=== PATIENT | male | born 1980 | race Two or more races ===

== ENCOUNTER 2019-12-28 09:17 | Inpatient (IN) | payer OTHER ==
[2019-12-28] VITALS (9 sets, daily range): BP systolic 108–125; BP diastolic 55–81
[~2019-12-28] VITALS: Ht 177.8 cm; Wt 97.5 kg
[~2019-12-28 09:17] MED LIST: CENTRUM MEN'S1 EACH PO; EMERGEN-C 1,01000 MG PO; Gelfoam Size TOPIC ONE; ceFAZolin sod 1 GM in NS 55 ML IVPB ONE
[2019-12-28] MEDS ORDERED: GINKGO BILOBA120 MG PO (10:16)
[2019-12-28] MEDS ORDERED: PCA Education Pamphlet MISC SCH (10:45)
[2019-12-28] MEDS ORDERED: PCA HYDROmorphone 1mg/ml 30 ML IV PRN ×3 (10:45→11:00)
[2019-12-28] MEDS ORDERED: ceFAZolin sod 1 GM in NS 55 ML IVPB ONE (10:45)
[2019-12-28] MEDS ORDERED: PCA Education Pamphlet MISC ONE (10:45)
[2019-12-28] MEDS ORDERED: Lidocaine 1% MPF 10mg/ml 5ml ONE (10:53)
[2019-12-28] MEDS ORDERED: Rate Change PCA 1 Each MISC PRN (11:00)
[2019-12-28] MEDS ORDERED: Hydromorphone 0.5mg/0.5ml inj IVP PRN ×2 (11:30→18:00)
--- NOTE | 2019-12-28 11:57 | Pre-Procedure Note/Attestation ---
Pre-Procedure Note/Attestation Complete Prior to Procedure Procedure Narrative: L5S1 and Post fusion with decompression Indications for Procedure Pre-Operative Diagnosis: L5S1 spondylolisthesis/ unstable Attestation I attest that I discussed the nature of the procedure; its benefits; risks and complications; and alternatives (and the risks and benefits of such alternatives ), prior to the procedure, with the patient (or the patient's legal construction representative). I attest that, if there was a reasonable possibility of needing a blood transfusion, the patient (or the patient's legal construction representative) was given the [facility] standardized written summary, pursuant to the Max Arianne Blood Safety Act ([place] Health and Safety Code # 1645, as amended). I attest that I re-evaluated the patient just prior to the surgery and that there has been no change in the patient's H&P, except as documented below: Cedric Mann MD Dec 28, 2019 11:57
[2019-12-28] MEDS ORDERED: fentaNYL 100 mcg/2 mL IV ONE (12:22)
[2019-12-28] MEDS ORDERED: Midazolam 2mg/2ml Inj ONE (12:22)
[2019-12-28] MEDS ORDERED: Gelfoam Size TOPIC ONE (12:24)
[2019-12-28] MEDS ORDERED: Lidocaine 1% 10mg/ml/Epi 0.005mg/ml 30ml vial INJ ONE (12:24)
[2019-12-28] MEDS ORDERED: Bupivacaine w/Epi 0.5% 30ml Vial INJ ONE (12:24)
[2019-12-28] MEDS ORDERED: Thrombin 5000 units TOPIC ONE (12:24)
[2019-12-28] MEDS ORDERED: Ropivacaine 5mg/ml Vial 20ml INJ ONE (12:24)
[2019-12-28] MEDS ORDERED: Bacitracin 50000 Units Vial ONE (12:24)
[2019-12-28] MEDS ORDERED: Vancomycin 1gm vial IVPB ONE (12:25)
[2019-12-28] MEDS ORDERED: Rocuronium Bromide 50mg/5ml Inj IV ONE ×2 (12:36→15:45)
[2019-12-28] MEDS ORDERED: Succinylcholine 20mg/ml 10ml vial ONE (12:36)
--- NOTE | 2019-12-28 12:57 | Anethesia Preoperative Eval ---
Anesthesia Pre-op PMH/ROS General Date of Evaluation: Dec 28, 2019 Time of Evaluation: 12:53 Anesthesiologist: Gladys ASA Score: ASA 2 Mallampati Score Class I : Soft palate, uvula, fauces, pillars visible Class II: Soft palate, uvula, fauces visible Class III: Soft palate, base of uvula visible Class IV: Only hard plate visible Mallampati Classification: Class II Surgeon: Mackenzie Diagnosis: Ant and posterior spinal fusion Surgical Procedure: Lumbar radiculopathy Anesthesia History: none Family History: no anesthesia problems Allergies: Coded Allergies: No Known Allergies (Unverified , 12/28/19) Medications: see eMAR Patient NPO?: Yes Past Medical History Cardiovascular: Denies: HTN, CAD, [place], valve dz, arrhythmia, other Pulmonary: Denies: asthma, COPD, REINA, other Gastrointestinal/Genitourinary: Reports: GERD - mild; Denies: CRI, ESRD, other Neurologic/Psychiatric: Reports: other - chronic pain; Denies: dementia, CVA, depression/anxiety, TIA Endocrine: Denies: DM, hypothyroidism, steroids, other HEENT: Denies: cataract (L), cataract (R), glaucoma, NATIVE (L), NATIVE (R), other Hematology/Immune: Denies: anemia, DVT, bleeding disorder, other Musculoskeletal/Integumentary: Denies: OA, RA, DJD, DDD, edema, other Other: other - overweight PMH Narrative: as above PSxH Narrative: none Anesthesia Pre-op Phys. Exam Physician Exam Last Vital Signs Date Time Temp Pulse Resp B/P (MAP) Pulse Ox O2 Delivery O2 Flow Rate FiO2 12/28/19 10:18 Room Air 12/28/19 10:17 98.2 74 18 125/81 (96) 97 Constitutional: NAD Neurologic: CN 2-12 intact Cardiovascular: RRR, no M/R/G Respiratory: CTA Gastrointestinal: S/NT/ND Airway Exam Mallampati Score: Class II MO: full Neck: flexible ROM: full Teeth: intact Dentures: no upper, no lower Anesthesia Pre-op A/P Labs see chart Studies Pre-op Studies: EKG - NSR Risk Assessment & Plan Assessment: ASA 2 Plan: GA with ETT, supine and prone position, neuromonitoring Status Change Before Surgery: No Pre-Antibiotics Drug: Ancef 2gr. Given Within 1 Hr of Incision: Yes Time Given: 13:40 Ifeanyi Graham MD Dec 28, 2019 12:57
[2019-12-28] MEDS ORDERED: Acetaminophen (Non formulary) 100 ML IV ONE (13:00)
[2019-12-28] MEDS ORDERED: Heparin 5000 units/ml inj ONE (13:39)
[2019-12-28] MEDS ORDERED: propofoL 1,000mg/100ml IV ONE (14:00)
[2019-12-28] MEDS ORDERED: Sterile Water Irrig 1000ml IRRIG ONE (14:00)
[2019-12-28] MEDS ORDERED: NS Irrig 1000ml ONE (14:00)
[2019-12-28] MEDS ORDERED: LR 1000ml ONE (14:00)
[2019-12-28] MEDS ORDERED: Morphine Sulfate 10mg/ml Inj ONE (14:48)
[2019-12-28] MEDS ORDERED: Glycopyrrolate 0.2mg/ml 1ml Vial ONE (14:49)
[2019-12-28] MEDS ORDERED: Sodium Chloride 10ml vial INJ ONE (14:49)
[2019-12-28] MEDS ORDERED: Neostigmine 1mg/ml 10ml Inj ONE (14:49)
--- NOTE | 2019-12-28 15:39 | Brief Operative Note ---
Immediate Post Operative Note Operative Note Pre-op Diagnosis: L5S1 spondylolisthesis/ unstable Procedure: ant post fusion l5s1 with decompression Post-op Diagnosis: same as pre-op Findings: consistent w/pre-op dx studies Surgeon: ysdni Senior Php Developer: dolores treviño Additional Surgeons: reyna dwyer Anesthesiologist: melissa jackson Specimen: none Complications: none Condition: stable Fluids: 1400 Estimated Blood Loss: volume - 250 Drains: none Implant(s) used?: Yes - 4 web cage, eminent spine ant plate, spinal elements pedicle screws Cedric Mann MD Dec 28, 2019 15:39
[2019-12-28] MEDS ORDERED: Milk of Magnesia 30ml Ud ORAL PRN (15:45)
--- NOTE | 2019-12-28 16:45 | Operative Note - Dictated ---
DATE OF OPERATION: 12/28/2019 SURGEON: Cedric Mann MD. DIP DYER: Hussain Zabala PA-C. VASCULAR ACCESS SURGEON: Alber Zaragoza MD. ANESTHESIOLOGIST: Ifeanyi Graham MD. ANESTHESIA: General endotracheal anesthesia. PREOPERATIVE DIAGNOSIS: Unstable spondylolisthesis at L5-S1. POSTOPERATIVE DIAGNOSIS: Unstable spondylolisthesis at L5-S1. PROCEDURES: 1. Wide and radical anterior discectomy, lumbar spine with interbody fusion, L5-S1. 2. Placement of interbody fusion device (4 WEB cage). 3. Anterior instrumentation using Eminent spine plate, L5-S1. 4. Use of allograft (Signafuse). 5. Use of fluoroscopy. ESTIMATED BLOOD LOSS: Minimal. COMPLICATIONS: None. INDICATIONS: The patient is a very pleasant gentleman with history of significant mechanical back pain, sustained a work-related injury. Conservative care was attempted and failed. Surgical treatment options were discussed. The patient elected to proceed with surgical fixation. RISK NOTE: The patient was explained in detail risks and benefits of surgery to include, but not be limited to those of bleeding, infection, damage to nerves, vessels, tendons, anesthetic risk, allergic reaction, aspiration, possibly specific to this procedure, vascular injury, sexual dysfunction, retrograde ejaculation, malposition hardware, pseudoarthrosis, need for additional surgery. The patient understood and wished to proceed. OPERATIVE PROCEDURE IN DETAIL: The patient was taken to the operating suite after general endotracheal anesthesia was obtained. Herman catheter was placed. He was positioned supine onto a radiolucent table. The abdomen was prepped and draped in usual sterile fashion. At this point, the vascular team then proceeded to perform an anterior retroperitoneal approach. Retractors were ultimately put in place and fluoroscopic confirmation of the L5-S1 level was made. Spine surgical team then proceeded to perform wide and radical discectomy by performing a large annulotomy. Using a 10 blade removal of the entirety of the disc along with cartilaginous endplate. A bullet-tip intradiscal distractors allowed for complete decompression up to the posterior annulus. At this point, the endplate preparation was performed using a rasp curette. At this point, a 1.5 inch osteotome was used to osteotomize the anterior aspect of the inferior portion anteriorly of L5 allowing for correction of the concavity. At this point, a large 4 WEB trial measuring 12 mm in height was chosen. It was inserted under fluoroscopic guidance and noted to have excellent fit with minimal over distraction of the disc space. At this point, the 12 mm 4 WEB cage was chosen and it was packed in its entirety with Signafuse. It was inserted under direct fluoroscopic and direct visualization. Once the cage was inserted, it was tested and noted to have excellent fit with minimal over distraction. At this point, the appropriate sized Eminent spine plate was chosen, inserted into place and the appropriate 25 mm screws were then inserted. Once stable fixation was obtained, decision was made to close. Final AP, lateral fluoroscopic images were obtained. The patient overall tolerated the procedure well. Final closure will be dictated separately by Dr. Zaragoza. Cedric Mann M.D. DR: SUKHI JOB#: [id number] CC:
--- NOTE | 2019-12-28 16:45 | Operative Note - Dictated ---
DATE OF OPERATION: 12/28/2019 SURGEON: Alber Zaragoza MD. VASCULAR SURGEON: Alber Zaragoza MD. SPINE SURGEON: Cedric Mann MD. PREOPERATIVE DIAGNOSIS: Lumbar pain. POSTOPERATIVE DIAGNOSIS: Lumbar pain. PROCEDURE PERFORMED: Anterior retroperitoneal exposure, L5-S1 vertebral interspace, right retroperitoneal approach. INDICATIONS: The patient is a very pleasant gentleman who was seen prior to surgery via telemedicine. He has no prior anterior spine surgery, denies deep venous thrombosis or bleeding complications. He was made aware of the risks of vascular surgery including vascular injury, possible need for blood transfusion, and deep venous thrombosis. DESCRIPTION OF FINDINGS: A low vertical midline incision was used. A right retroperitoneal approach was used. There was no peritoneal or ureteral violation. There was no vascular injury. Exposure of L5-S1 was obtained below the iliac bifurcation and confirmed via fluoroscopy. On completion, the peritoneum and ureter were intact, iliac vessels were intact. Blood loss was less than 50 mL. Complications, none. DESCRIPTION OF PROCEDURE: The patient was taken to the operative room. General anesthesia was used. Antibiotics were given. The patient's abdomen was prepped and draped. Appropriate time out for procedure was taken. A low vertical midline incision was made infraumbilically. The anterior fascia was incised longitudinally in the midline. A plane was identified posterior to the right rectus abdominis, developed posterolaterally toward the patient's right. The retroperitoneal space entered below the arcuate line. The peritoneum and ureter were mobilized toward the patient's left exposing the right common iliac artery and vein. Dissection was carried medial to the right common iliac artery and anterior surface of L5-S1 was palpated. The right iliac vessels were retracted laterally and peritoneum and ureter were then swept toward the patient's left exposing the medial border of left iliac vein. The middle sacral artery and vein were ligated with vascular clips and divided. This allowed us to sweep the left iliac vein laterally and expose the anterior surface of L5-S1. The sympathetic structures on top of L5-S1 were bluntly mobilized laterally and preserved and the Omni retractor blades were set in place. Instrumentation was then performed at L5-S1. Fluoroscopy used to confirm the appropriate level and then on completion the retractors were removed. The peritoneum and ureter were intact. Iliac vessels were intact. Anterior fascia was then closed using #1 PDS in a running fashion and the skin and subcutaneous tissue were closed with 3-0 Vicryl running closure and 4-0 Monocryl running subcuticular closure technique. ESTIMATED BLOOD LOSS: Less than 50 mL. COMPLICATIONS: None. Alber Zaragoza M.D. DR: Hortensia JOB#: [id number] CC:
[2019-12-28] MEDS ORDERED: LR 1000ml 1,000 ML IVLG SCH (17:50)
[2019-12-28] MEDS ORDERED: Meperidine 25mg/0.5ml Inj (FOR RIGORS ONLY) IV PRN (18:00)
[2019-12-28] MEDS: Docusate Sod/Senna tab ORAL SCH (18:00)
[2019-12-28] MEDS ORDERED: Ketorolac 30mg Inj IV PRN (18:00)
[2019-12-28] MEDS ORDERED: Metoclopramide 10mg/2ml Inj IVP PRN (18:00)
[2019-12-28] MEDS ORDERED: DiphenhydrAMINE 50mg/ml Inj IVP PRN (18:00)
[2019-12-28] MEDS: Docusate 100mg cap ORAL SCH (18:00)
[2019-12-28] MEDS: PCA shift volume MISC SCH (19:00)
--- NOTE | 2019-12-28 19:03 | Immediate Post-Op Evaluation ---
Immediate Post-Op Evalulation Immediate Post-Op Evalulation Procedure: ALIF and posterior discectomy with interbody fusion L5-S1 Date of Evaluation: Dec 28, 2019 Time of Evaluation: 19:01 IV Fluids: 1400 Blood Products: none Estimated Blood Loss: 250 Urinary Output: 200 Blood Pressure Systolic: 113 Blood Pressure Diastolic: 58 Pulse Rate: 76 Respiratory Rate: 20 O2 Sat by Pulse Oximetry: 99 Temperature (Fahrenheit): 98.7 Pain Score (1-10): 1 Nausea: No Vomiting: No Complications none Patient Status: reacts, patent, extubated Ifeanyi Graham MD Dec 28, 2019 19:02
[2019-12-28] MEDS ORDERED: Hydromorphone 0.5mg/0.5ml inj SUBQ PRN (19:15)
[2019-12-28] MEDS ORDERED: Chloraseptic Spray 20mL Bottle ORAL PRN (19:15)
--- NOTE | 2019-12-28 20:15 | Operative Note - Dictated ---
DATE OF OPERATION: 12/28/2019 SURGEON: Cedric Mann M.D. COMMERCIAL CREDIT LEAD: Hussain Zabala PA-C. ANESTHESIOLOGIST: Ifeanyi Graham M.D. ANESTHESIA: General endotracheal anesthesia. PREOPERATIVE DIAGNOSIS: L5-S1 spondylolisthesis, unstable, status post anterior fusion/fixation. POSTOPERATIVE DIAGNOSIS: L5-S1 spondylolisthesis, unstable, status post anterior fusion/fixation. PROCEDURES: 1. Posterior spinal fusion, L5-S1. 2. Nonsegmental pedicle screw fixation using Spinal Elements pedicle screws, L5-S1. 3. Foraminotomy bilaterally, outside-in approach through a lateral approach. 4. Use of bone grafting (local autograft) as well as allograft structural strip. 5. Neurodiagnostic monitoring with pedicle screw stimulation. 6. Use of fluoroscopy. ESTIMATED BLOOD LOSS: Total 250 mL. URINE OUTPUT: 200 mL total. FLUIDS: 1400 mL INDICATIONS: The patient is a very pleasant 39-year-old with intractable back pain with an unstable spondylolisthesis, L5-S1. Surgical options were discussed as conservative care has failed. The patient elected to proceed with surgery. RISK NOTE: The patient was explained in detail risks, benefits of surgery to include, but not be limited to those of bleeding, infection, damage to nerves, vessels, tendons, anesthetic risk, allergic reaction, aspiration, and possibly . The patient understood and wished to proceed. OPERATIVE PROCEDURE IN DETAIL: Under benefits of general anesthesia, the patient was turned prone onto a Patrice frame. All bony prominences were well padded. Fluoroscope was brought into place and the L5-S1 was visualized fluoroscopically. Bilateral Jarred incisions were marked on the skin 5.5 cm on either side of the midline. At this point, the back was prepped and draped in usual sterile fashion. The incisions were infiltrated with Marcaine with epinephrine. Incision first on the right side was made measuring approximately 1.5 inches long. Dissection was carried out through the subcu. Dorsal fascia was incised and blunt dissection was carried out to the L5-S1 region lateral to the facet joints. The transverse process of L5 and the sacral ala was identified. Self-retaining retractors were put into place. At this point, the high-speed drill was utilized to dissect out the lateral aspect of the facet joint and the capsule ligament was removed with Kerrison punch. Probing of the neural foramen demonstrated adequate foraminotomy through an outside-in lateral approach. At this point, the pedicle screws were inserted using standard technique using a drill to score the outer cortex. A pedicle ball-tip probe to verify no cortical breakthrough. This was performed both at L5 and at S1. Once satisfied, tapping using a 6 mm tap of the near cortex. At this point, please note that pedicle screws were identified under fluoroscopic guidance. A guidewire was then inserted into the pedicle screw hole at L5 and S1. At this point, a 20 x 10 strip of malleable allograft bone graft was then placed through the guidewires and then the pedicle screws measuring 6.5 x 45 mm were inserted both at L5 and at S1 transfixing the bone graft underneath it. Local autograft from the foraminotomy was additionally inserted. At this point, the guidewires were removed. Fluoroscopically, screw placement was in ideal position. The appropriate sized 40 mm pramod was then chosen and inserted. The screw heads were affixed with locking caps. The compression was achieved with an external compressor and then the locking caps were torqued to the appropriate level. Once satisfied with this, copious irrigation was performed. 500 mL of vancomycin powder was inserted. Fascia was then repaired using #1 Vicryl, subcu closure using 2-0 Vicryl. Sterile dressing and Dermabond. The attention was simultaneously during the closure turned towards the left side and in identical fashion incision was made. The pedicle holes were identified. Outside-in foraminotomy was performed. Pedicle screws were inserted and under fluoroscopic visualization were secured into place. All screws on the left side were 6.5 x 45 as well and a 45 mm pramod was inserted with locking caps. Please note that prior to final construct fixation, all pedicle screws were tested with neurodiagnostic monitoring and impedance was above 20 milliamps at all four screws. The final pramod construct was inserted. Locking caps were inserted and excellent bony fixation was finally achieved. The other 500 mL of vancomycin was then inserted in the left paraspinal incision. Again, please note that these were standard Jarred approaches on both the right and on the left sides. Final closure was identical as dictated on the left as it was on the right. Sterile dressing was applied bilaterally. At the time of this dictation, the patient was awaiting transfer to a rwilmot and awaiting extubation. Sponge and needle counts were correct. Neurodiagnostic monitoring remained stable. Cedric Angie Mann DR: Lizzy JOB#: [id number] CC:
[2019-12-28] MEDS: ceFAZolin sod 1 GM in D5W 55 ML IV SCH (21:38)
[2019-12-28] MEDS: D5 1/2NS 1,000 ML IV SCH (21:38)
[2019-12-29] VITALS: BP 119/62
[2019-12-29 04:00] VITALS: BP 118/62
[2019-12-29] MEDS: ceFAZolin sod 1 GM in D5W 55 ML IV SCH ×2 (04:46→13:29)
[2019-12-29 05:55] LABS: BASOPHILS % (AUTO) 0.5 % (0.0-2.0); EOSINOPHILS % (AUTO) 0.5 % (0.0-3.0); HEMATOCRIT 43.9 % (42.0-52.0); HEMOGLOBIN 14.1 G/DL (14.2-18.0); MEAN CORPUSCULAR VOLUME 94 FL (80-99); MONOCYTES % (AUTO) 9.9 % (1.0-10.0); NEUTROPHILS % (AUTO) 77.1 % (45.0-75.0); PLATELET COUNT 249 K/UL (150-450); RED BLOOD COUNT 4.69 M/UL (4.70-6.10); RED CELL DISTRIBUTION WIDTH 12.2 % (11.6-14.8); WHITE BLOOD COUNT 10.9 K/UL (4.8-10.8)
[2019-12-29] MEDS: D5 1/2NS 1,000 ML IV SCH ×4 (06:22→20:15)
[2019-12-29] MEDS: PCA shift volume MISC SCH ×2 (07:00→19:15)
--- NOTE | 2019-12-29 07:13 | 48 Hour Post Anesthesia Eval ---
Post Anesthesia Evaluation Procedure: ALIF and posterior discectomy with interbody fusion L5-S1 Date of Evaluation: Dec 29, 2019 Time of Evaluation: 06:02 Blood Pressure Systolic: 118 0: 62 Pulse Rate: 62 Respiratory Rate: 17 Temperature (Fahrenheit): 99 O2 Sat by Pulse Oximetry: 99 Airway: patent Nausea: No Vomiting: No Pain Intensity: 3 Hydration Status: adequate Cardiopulmonary Status: Stable Mental Status/LOC: patient returned to baseline Follow-up Care/Observations: 0 Post-Anesthesia Complications: 0 Follow-up care needed: N/A Malcom Tejeda MD Dec 29, 2019 07:13
[2019-12-29 08:00] VITALS: BP 114/62
[2019-12-29] MEDS: Docusate 100mg cap ORAL SCH ×2 (09:43→17:45)
[2019-12-29] MEDS: Docusate Sod/Senna tab ORAL SCH ×2 (09:44→17:45)
[2019-12-29 12:00] VITALS: BP 111/62
[2019-12-29] MEDS ORDERED: HYDROcodone/Acetamin 5/325 tab ORAL PRN (14:30)
--- NOTE | 2019-12-29 14:49 | Pain Management Progress Note ---
Allergies: Coded Allergies: No Known Allergies (Unverified , 12/28/19) Vitals Last 24 Hour Vital Signs Date Time Temp Pulse Resp B/P (MAP) Pulse Ox O2 Delivery O2 Flow Rate FiO2 12/29/19 12:00 98.1 61 17 111/62 (78) 98 12/29/19 12:00 61 17 98 12/29/19 08:00 65 17 98 12/29/19 08:00 98.1 65 17 114/62 (79) 98 12/29/19 07:13 62 17 99 12/29/19 04:00 99.0 62 17 118/62 (80) 99 12/29/19 04:00 62 17 99 12/29/19 00:00 99.6 66 18 119/62 (81) 100 12/29/19 00:00 74 18 100 12/28/19 21:00 Room Air 3.0 12/28/19 20:00 74 20 97 12/28/19 20:00 98.0 74 20 124/62 (82) 97 12/28/19 19:50 98.1 71 17 111/59 100 Nasal Cannula 3 12/28/19 19:45 17 12/28/19 19:35 68 17 112/58 100 Nasal Cannula 3 12/28/19 19:30 18 12/28/19 19:24 71 22 109/59 100 Nasal Cannula 3 12/28/19 19:14 71 19 108/58 99 Nasal Cannula 3 12/28/19 19:04 78 20 113/60 98 Simple Mask 6 12/28/19 19:02 76 20 99 12/28/19 18:59 77 19 113/55 99 Simple Mask 6 12/28/19 18:54 98.5 84 25 112/59 99 Simple Mask 6 Medications Current Medications Medications (Trade) Dose Ordered Sig/Sigrid Route PRN Reason Start Time Stop Time Status Last Admin Dose Admin Acetaminophen (Tylenol) 650 mg Q6H PRN ORAL MILD/TEMP 12/28/19 19:15 01/27/20 19:14 Acetaminophen/ Butalbital/ Caffeine (Fioricet) 1 tab Q8H PRN ORAL headache 12/28/19 19:15 01/27/20 19:14 Acetaminophen/ Hydrocodone Bitart ([place] 5/325) 1 tab Q3H PRN ORAL Moderate Pain (Pain Scale 4-6) 12/29/19 14:30 01/05/20 14:29 Al Hydroxide/Mg Hydroxide (Mylanta) 30 ml Q6H PRN ORAL gerd 12/28/19 19:15 01/27/20 19:14 Clonidine HCl (Catapres Tab) 0.1 mg Q8H PRN ORAL For High Blood Pressure 12/28/19 19:15 03/27/20 19:14 Dextrose/Sodium Chloride 1,000 ml @ 150 mls/hr Q6H40M IV 12/29/19 08:00 01/27/20 07:59 12/29/19 13:29 Diphenhydramine HCl (Benadryl) 25 mg Q6H PRN ORAL Itching 12/28/19 19:15 01/27/20 19:14 Docusate Sodium (Colace) 100 mg TWICE A DAY ORAL 12/28/19 18:00 01/27/20 17:59 12/29/19 09:43 Famotidine (Pepcid) 20 mg BID ORAL 12/29/19 09:00 03/28/20 08:59 12/29/19 09:44 Hydromorphone HCl 30 ml @ 0 mls/hr Q24H PRN IV For Pain 12/28/19 11:00 12/30/19 10:59 12/28/19 19:30 Hydromorphone HCl (Dilaudid) 0.5 mg Q2H PRN SUBQ Severe Breakthru Pain (>7) 12/28/19 19:15 01/04/20 19:14 Magnesium Hydroxide (Mom) 30 ml QIDPRN PRN ORAL Constipation 12/28/19 15:45 01/27/20 15:44 Miscellaneous Medication (CONTENT PRODUCTION SPECIALIST Rate Change) 1 ea DAILY PRN MISC rate change 12/28/19 11:00 12/30/19 10:59 Miscellaneous Medication (CONTENT PRODUCTION SPECIALIST shift volume) 1 ea Q12HR@0700,1900 MISC 12/28/19 19:00 12/30/19 18:59 12/29/19 07:00 Naloxone HCl (Narcan) 0.1 mg Q1M PRN IV RR<10/min OR SBP<90 mmHg 12/28/19 11:00 12/30/19 10:59 Ondansetron HCl (Zofran) 4 mg Q4H PRN IVP Nausea & Vomiting 12/28/19 19:15 01/27/20 19:14 Phenol/Menthol (Chloraseptic) 1 spray Q2H PRN ORAL sore throat 12/28/19 19:15 03/27/20 19:14 Promethazine HCl (Phenergan) 12.5 mg Q8H PRN IM Nausea & Vomiting 12/28/19 19:15 01/27/20 19:14 Senna/Docusate Sodium (Margaret-Colace) 1 tab TWICE A DAY ORAL 12/28/19 18:00 01/27/20 17:59 12/29/19 09:44 Laboratory Laboratory Tests Test 12/29/19 04:40 White Blood Count 10.9 K/UL (4.8-10.8) H Red Blood Count 4.69 M/UL (4.70-6.10) L Hemoglobin 14.1 G/DL (14.2-18.0) L Hematocrit 43.9 % (42.0-52.0) Mean Corpuscular Volume 94 FL (80-99) Mean Corpuscular Hemoglobin 30.1 PG (27.0-31.0) Mean Corpuscular Hemoglobin Concent 32.1 G/DL (32.0-36.0) Red Cell Distribution Width 12.2 % (11.6-14.8) Platelet Count 249 K/UL (150-450) Mean Platelet Volume 7.8 FL (6.5-10.1) Neutrophils (%) (Auto) 77.1 % (45.0-75.0) H Lymphocytes (%) (Auto) 12.0 % (20.0-45.0) L Monocytes (%) (Auto) 9.9 % (1.0-10.0) Eosinophils (%) (Auto) 0.5 % (0.0-3.0) Basophils (%) (Auto) 0.5 % (0.0-2.0) Plan: Patient seen with nursing team Raina. Discussed with surgeon Dr Mann. No hemovac drain. Pain level 4 / 10 on the visual-analog pain scale. Continue CONTENT PRODUCTION SPECIALIST as ordered, but will not renew. Pt using CONTENT PRODUCTION SPECIALIST intermittently. PRN sq dilaudid still available; and I added prn norco 5. MAR medication list reviewed. After ALIF, pt remains NPO x meds/ice with no emesis. Continue IVF. Herman d/c'd. GI: +BS No flatus No BM Encourage incentive spirometer usage. Encourage advancing ambulation with physical therapy as tolerated. SCDs for mechanical prophylaxis against deep venous thrombosis and PEs. Discussed discharge planning with RNs to help expedite hospital discharge. Rx will be needed for outpatient pain medication usage. Will see if outpt pharmacy will fill workcomp Rx. Kilo Ricci MD Dec 29, 2019 14:49
[2019-12-29 16:00] VITALS: BP 115/67
--- NOTE | 2019-12-29 16:45 | Consultation ---
DATE OF CONSULTATION: 12/28/2019 CONSULTING PHYSICIAN: Kilo Ricci MD. REFERRING PHYSICIAN: Cedric Mann MD. REASON FOR CONSULTATION: Acute pain consult. HISTORY OF PRESENT ILLNESS: Dear Dr. Cedric Mann, Thank you kindly for consulting me to evaluate and render an opinion as to how to proceed in the management of patient's acute postoperative lumbar spine pain after his extensive lumbar spine fusion surgery with instrumentation today. The patient is a 39-year-old gentleman, who injured his lumbar spine in a work-related injury. He required anterior-approach and posterior-approach lumbar spine fusion surgery with instrumentation. You consulted me to help with his postoperative care and pain management. I saw the patient at bedside. I performed detailed history and physical examination. I discussed the case with the recovery room nurse, AWAIS Lim along with the hospital pharmacist, Pharm Janine Arias. I spent over 75 minutes in consultation with an additional 30 minutes in medical record review. Multiple records reviewed from today's date of surgery at [facility] including utilization review and surgical authorization by [facility] utilization review service certifying lumbar spine fusion surgery with instrumentation as certified and authorized. Multiple records were reviewed from the patient's medical chart including preoperative records from Dr. Jarrod Hicks dated December 23, 2019 along with diagnostic testing. Multiple records were reviewed from today's date of surgery at [facility] including consent for surgical treatment, consent for anesthesia, consent for blood products, medication administration record, medication reconciliation order form, PACU record, PACU orders, anesthesia record, pre- and post anesthesia evaluation record, initial nursing assessment, 24-hour medical and surgical flow sheet, implant log, guidelines for prophylactic antibiotics, guidelines for DVT prophylaxis, Staton-Carlson diagram for cognitive disability. PAST MEDICAL HISTORY: 1. Acute postoperative lumbar spine pain, status post lumbar spine fusion surgery with instrumentation by Dr. Cedric Mann, December 2019. 2. Work-related injury. PHYSICAL EXAMINATION: VITAL SIGNS: Postoperative vital signs shows temperature 99.6, pulse 66, respiration rate 18, blood pressure 119/62, O2 saturation 100%. HEENT: Normocephalic and atraumatic. CHEST: Clear to auscultation. HEART: Regular rate and rhythm. ABDOMEN: Absent bowel sounds. Tender by lower abdominal incision. Dressing appears clean and dry. EXTREMITIES: Moving all extremities x4 with 5/5 dorsiflexion and 5/5 plantar flexion in bilateral lower extremities. GENITOURINARY: Deferred. Herman catheter in-place. LABORATORY AND DIAGNOSTIC DATA: Diagnostic testing shows preoperative laboratories from December 24, 2019 INR 1.2, PTT 29. Urinalysis negative. Glucose 86, sodium 142, potassium 4.6, chloride 102, bicarb 28, BUN 12, creatinine 1.0, calcium 10.0. Total protein 7.2, albumin 4.6, AST 28, ALT 36, total bilirubin is 1.1. White count 5, hematocrit 47, platelets 270. A 12-lead EKG incomplete right bundle-branch block, heart rate 67. Preoperative chest x-ray shows no acute cardiopulmonary process dated December 23, 2019. IMPRESSION: 1. Acute postoperative lumbar spine pain, status post lumbar spine fusion surgery with instrumentation by Dr. Cedric Mann, December 2019. 2. Work-related injury. TREATMENT RECOMMENDATIONS: I spoke with the hospital pharmacist and the recovery room nurse, RN, Dr. Lim to expedite starting the Dilaudid NURSE'S ASSISTANT for immediate postoperative analgesia. I have started Dilaudid dose of 0.2 mg demand dose at 10-minute lockout and a 4 mg 4-hour limit. There will be no underlying basal rate or continuous rate to reduce the risk of respiratory depression. I have also added breakthrough rescue dose of Dilaudid 0.5 mg subcutaneously every 2 hours p.r.n. for severe breakthrough pain. I will empirically place him on Pepcid 20 mg b.i.d. for GI ulcer prophylaxis and I have ordered p.r.n. dose of Mylanta 30 mL q.6 every 6 hours in case of any GERD symptom exacerbation. I have ordered Zofran 4 mg intravenously every 4 hours p.r.n. as a as a first-line antiemetic agent, with a backup dose of Phenergan 12.5 mg intramuscular every 8 hours p.r.n. I have ordered Benadryl 25 mg orally every 6 hours in case of any itching complaints. With his young age of 39 and a normal heart history, I will put him on aggressive intravenous fluid for hydration with IV fluids at 150 mL an hour. I have asked nursing to place Chloraseptic spray bottle at the bedside in case of any sore throat complaints. I have ordered Catapres as an antihypertensive agent as needed. Fioricet is available for headache symptoms on a p.r.n. basis, along with Tylenol as an anti-pyretic. I have ordered incentive spirometer to encourage good pulmonary toilet. I will defer DVT prophylaxis to the surgeon. Kilo Ricci M.D. DR: Mitzy JOB#: [id number] CC:
--- NOTE | 2019-12-29 16:49 | Orthopedic Spine Progress Note ---
Ortho Spine - Progress Note Subjective Symptoms: c/o post-op back pain Objective Vital Signs: Last 24 Hour Vital Signs Date Time Temp Pulse Resp B/P (MAP) Pulse Ox O2 Delivery O2 Flow Rate FiO2 12/29/19 12:00 98.1 61 17 111/62 (78) 98 12/29/19 12:00 61 17 98 12/29/19 08:00 65 17 98 12/29/19 08:00 98.1 65 17 114/62 (79) 98 12/29/19 07:13 62 17 99 12/29/19 04:00 99.0 62 17 118/62 (80) 99 12/29/19 04:00 62 17 99 12/29/19 00:00 99.6 66 18 119/62 (81) 100 12/29/19 00:00 74 18 100 12/28/19 21:00 Room Air 3.0 12/28/19 20:00 74 20 97 12/28/19 20:00 98.0 74 20 124/62 (82) 97 12/28/19 19:50 98.1 71 17 111/59 100 Nasal Cannula 3 12/28/19 19:45 17 12/28/19 19:35 68 17 112/58 100 Nasal Cannula 3 12/28/19 19:30 18 12/28/19 19:24 71 22 109/59 100 Nasal Cannula 3 12/28/19 19:14 71 19 108/58 99 Nasal Cannula 3 12/28/19 19:04 78 20 113/60 98 Simple Mask 6 12/28/19 19:02 76 20 99 12/28/19 18:59 77 19 113/55 99 Simple Mask 6 12/28/19 18:54 98.5 84 25 112/59 99 Simple Mask 6 I&O: Intake and Output 12/28/19 12/29/19 19:00 07:00 Intake Total 1400 ml 100 ml Output Total 450 ml 350 ml Balance 950 ml -250 ml Intake IV Total 1400 ml 100 ml Output Urine Total 200 ml 350 ml Estimated Blood Loss 250 ml # Voids 1 Wound: clean, intact Neuro Status: normal Assessment Procedure Performed: ant post fusion l5s1 with decompression Plan Plan: PT, pain management, discharge plan Cedric Mann MD Dec 29, 2019 16:49
[2019-12-29 20:00] VITALS: BP 117/59
[2019-12-30] VITALS: BP 125/63
[2019-12-30] MEDS: D5 1/2NS 1,000 ML IV SCH (03:07)
[2019-12-30 04:00] VITALS: BP 112/64
[2019-12-30] MEDS ORDERED: D5 1/2NS 1,000 ML IV SCH ×2 (04:15→08:00)
[2019-12-30] MEDS ORDERED: HYDROcodone/Acetamin 5/325 tab ORAL SCH (06:30)
--- NOTE | 2019-12-30 06:59 | Pain Management Progress Note ---
Allergies: Coded Allergies: No Known Allergies (Unverified , 12/28/19) Vitals Last 24 Hour Vital Signs Date Time Temp Pulse Resp B/P (MAP) Pulse Ox O2 Delivery O2 Flow Rate FiO2 12/30/19 04:03 99.0 12/30/19 04:00 99.9 75 18 112/64 (80) 98 12/30/19 04:00 75 20 99 12/30/19 00:00 99.2 68 18 125/63 (83) 98 12/30/19 00:00 68 20 98 12/29/19 21:00 Room Air 12/29/19 20:00 100.3 73 18 117/59 (78) 95 12/29/19 20:00 73 18 95 12/29/19 16:00 66 17 98 12/29/19 16:00 98.2 66 17 115/67 (83) 98 12/29/19 12:30 Room Air 12/29/19 12:00 98.1 61 17 111/62 (78) 98 12/29/19 12:00 61 17 98 12/29/19 09:00 Room Air 12/29/19 08:00 65 17 98 12/29/19 08:00 98.1 65 17 114/62 (79) 98 12/29/19 07:13 62 17 99 Medications Current Medications Medications (Trade) Dose Ordered Sig/Sigrid Route PRN Reason Start Time Stop Time Status Last Admin Dose Admin Acetaminophen (Tylenol) 650 mg Q6H PRN ORAL MILD/TEMP 12/28/19 19:15 01/27/20 19:14 12/30/19 03:33 Acetaminophen/ Butalbital/ Caffeine (Fioricet) 1 tab Q8H PRN ORAL headache 12/28/19 19:15 01/27/20 19:14 Acetaminophen/ Hydrocodone Bitart ([place] 5/325) 1 tab 0630 ORAL 12/30/19 06:30 12/30/19 08:00 12/30/19 06:40 Acetaminophen/ Hydrocodone Bitart ([place] 5/325) 1 tab Q3H PRN ORAL Moderate Pain (Pain Scale 4-6) 12/30/19 08:30 01/06/20 08:29 Al Hydroxide/Mg Hydroxide (Mylanta) 30 ml Q6H PRN ORAL gerd 12/28/19 19:15 01/27/20 19:14 Clonidine HCl (Catapres Tab) 0.1 mg Q8H PRN ORAL For High Blood Pressure 12/28/19 19:15 03/27/20 19:14 Diphenhydramine HCl (Benadryl) 25 mg Q6H PRN ORAL Itching 12/28/19 19:15 01/27/20 19:14 Docusate Sodium (Colace) 100 mg TWICE A DAY ORAL 12/28/19 18:00 01/27/20 17:59 12/29/19 17:45 Famotidine (Pepcid) 20 mg BID ORAL 12/29/19 09:00 03/28/20 08:59 12/29/19 17:45 Hydromorphone HCl (Dilaudid) 0.5 mg Q2H PRN SUBQ Severe Breakthru Pain (>7) 12/28/19 19:15 01/04/20 19:14 Magnesium Hydroxide (Mom) 30 ml QIDPRN PRN ORAL Constipation 12/28/19 15:45 01/27/20 15:44 Ondansetron HCl (Zofran) 4 mg Q4H PRN IVP Nausea & Vomiting 12/28/19 19:15 01/27/20 19:14 Senna/Docusate Sodium (Margaret-Colace) 1 tab TWICE A DAY ORAL 12/28/19 18:00 01/27/20 17:59 12/29/19 17:45 Laboratory HCT WNL WBC 11 Plan: Patient seen with AWAIS Blanco. Discussed with surgeon Dr Mann. Started passing flatus overnight. Will trial po liquids for breakfast, then advance quickly if tolerated. Pain level 3 / 10 on the visual-analog pain scale. Used FIELD TECHNICIAN overnight. Will trial off FIELD TECHNICIAN this am. PRN sq dilaudid available along with prn norco 5. MAR medication list reviewed. Heplock IVF. Herman d/c'd, and voiding urine well. No nausea. Breathing comfortably. No CP, or SOB. After ALIF-->GI: +BS + flatus. No BM Poor incentive spirometer usage, with resultant low-grade fevers. Certainly atelectasis component. Counseled pt to use IS more. Encourage advancing ambulation with physical therapy as tolerated. Will d/c urinal, to force patient to ambulate out of bed to void urine. Need pt to be much more aggressive walking. SCDs for mechanical prophylaxis against deep venous thrombosis and PEs. Discussed discharge planning with RNs to help expedite hospital discharge. can pickup pt whenever discharged by Dr. Mann. [place] Rx left for outpatient pain medication usage. RN Nico & Tressa to see if outpt pharmacy will fill workcomp Rx. Kilo Ricci MD Dec 30, 2019 06:59
[2019-12-30 08:00] VITALS: BP 126/78
[2019-12-30] MEDS: Docusate Sod/Senna tab ORAL SCH ×2 (08:55→17:05)
[2019-12-30] MEDS: Docusate 100mg cap ORAL SCH ×2 (08:55→17:05)
[2019-12-30] MEDS ORDERED: D5 1/2NS 1000ml IV ONE (11:36)
[2019-12-30] MEDS: HYDROcodone/Acetamin 5/325 tab ORAL PRN ×2 (11:48→17:05)
[2019-12-30 12:00] VITALS: BP 127/73
[2019-12-30 16:00] VITALS: BP 129/95
--- NOTE | 2019-12-30 16:06 | Orthopedic Spine Progress Note ---
Ortho Spine - Progress Note Subjective Symptoms: c/o post-op back pain, improved - as compared to pre-op Objective Vital Signs: Last 24 Hour Vital Signs Date Time Temp Pulse Resp B/P (MAP) Pulse Ox O2 Delivery O2 Flow Rate FiO2 12/30/19 12:18 98.9 12/30/19 12:00 98.9 72 16 127/73 (91) 97 12/30/19 09:00 Room Air 12/30/19 08:00 98.3 69 16 126/78 (94) 95 12/30/19 07:10 99.0 12/30/19 04:03 99.0 12/30/19 04:00 99.9 75 18 112/64 (80) 98 12/30/19 04:00 75 20 99 12/30/19 00:00 99.2 68 18 125/63 (83) 98 12/30/19 00:00 68 20 98 12/29/19 21:00 Room Air 12/29/19 20:00 100.3 73 18 117/59 (78) 95 12/29/19 20:00 73 18 95 I&O: Intake and Output 12/29/19 12/30/19 19:00 07:00 Intake Total 1600 ml 900 ml Output Total 850 ml 1700 ml Balance 750 ml -800 ml Intake IV Total 1600 ml 900 ml Output Urine Total 850 ml 1700 ml Wound: clean, intact Drains: none Neuro Status: normal Assessment Procedure Performed: ant post fusion l5s1 with decompression Plan Plan: PT, pain management, discharge plan Cedric Mann MD Dec 30, 2019 16:06
[2019-12-30 20:00] VITALS: BP 125/66
[2019-12-31] VITALS: BP 127/72
[2019-12-31 04:00] VITALS: BP 127/70
--- NOTE | 2019-12-31 06:35 | Pain Management Progress Note ---
Allergies: Coded Allergies: No Known Allergies (Unverified , 12/28/19) Vitals Vital Signs Date Time Temp Pulse Resp B/P (MAP) Pulse Ox O2 Delivery O2 Flow Rate FiO2 12/31/19 04:00 98.9 83 18 127/70 (89) 97 12/31/19 00:00 99.3 79 18 127/72 (90) 97 Medications Current Medications Medications (Trade) Dose Ordered Sig/Sigrid Route PRN Reason Start Time Stop Time Status Last Admin Dose Admin Acetaminophen (Tylenol) 650 mg Q6H PRN ORAL MILD/TEMP 12/28/19 19:15 01/27/20 19:14 12/30/19 20:27 Acetaminophen/ Butalbital/ Caffeine (Fioricet) 1 tab Q8H PRN ORAL headache 12/28/19 19:15 01/27/20 19:14 Acetaminophen/ Hydrocodone Bitart ([place] 5/325) 1 tab Q3H PRN ORAL Moderate Pain (Pain Scale 4-6) 12/30/19 08:30 01/06/20 08:29 12/30/19 17:05 Al Hydroxide/Mg Hydroxide (Mylanta) 30 ml Q6H PRN ORAL gerd 12/28/19 19:15 01/27/20 19:14 Clonidine HCl (Catapres Tab) 0.1 mg Q8H PRN ORAL For High Blood Pressure 12/28/19 19:15 03/27/20 19:14 Diphenhydramine HCl (Benadryl) 25 mg Q6H PRN ORAL Itching 12/28/19 19:15 01/27/20 19:14 Docusate Sodium (Colace) 100 mg TWICE A DAY ORAL 12/28/19 18:00 01/27/20 17:59 12/30/19 17:05 Famotidine (Pepcid) 20 mg BID ORAL 12/29/19 09:00 03/28/20 08:59 12/30/19 17:05 Hydromorphone HCl (Dilaudid) 0.5 mg Q2H PRN SUBQ Severe Breakthru Pain (>7) 12/28/19 19:15 01/04/20 19:14 Magnesium Hydroxide (Mom) 30 ml QIDPRN PRN ORAL Constipation 12/28/19 15:45 01/27/20 15:44 Ondansetron HCl (Zofran) 4 mg Q4H PRN IVP Nausea & Vomiting 12/28/19 19:15 01/27/20 19:14 Senna/Docusate Sodium (Margaret-Colace) 1 tab TWICE A DAY ORAL 12/28/19 18:00 01/27/20 17:59 12/30/19 17:05 Plan: Patient seen with AWAIS Franco. Discussed with surgeon Dr Mann, & his development officer. Advanced diet tolerated. No nausea. Voiding urine well. Good oral intake. Breathing comfortably. No CP, or SOB. After ALIF-->GI: +BS + flatus. No BM Better incentive spirometer usage; counseled pt to use IS more. Encourage advancing ambulation with physical. Able to move in-&-out of bed independently. Still with low-grade fevers. Certainly atelectasis component. Discussed discharge planning with RNs to help expedite hospital discharge. Tolerating off STUDY HALL SUPERVISOR. MAR medication list reviewed. Pain level 2 / 10 on the visual-analog pain scale. Continue PRN sq dilaudid available along with prn norco 5. Outpt pharmacy filled the workcomp Rx for [place] for outpatient pain medication usage, after I discussed with Dr. Mann's development officer to contact life insurance sales agent. Family will pickup pt when discharged by Dr. Mann later this morning. Kilo Ricci MD Dec 31, 2019 06:35
[2019-12-31 08:00] VITALS: BP 132/76
[2019-12-31] MEDS: Docusate 100mg cap ORAL SCH (08:13)
[2019-12-31] MEDS: Docusate Sod/Senna tab ORAL SCH (08:14)
[2019-12-31] MEDS: HYDROcodone/Acetamin 5/325 tab ORAL PRN (08:15)
[2019-12-31] MEDS ORDERED: NORCO 10-325 T1 EACH ORAL (11:09)
--- NOTE | 2020-01-02 10:19 | Discharge Summary ---
Discharge Summary Discharge Summary _ DATE OF ADMISSION: 12/28/2019 DATE OF DISCHARGE: 12/31/2019 SURGEON: Dr. Cedric Mann CO-SURGEON: Dr. Alber Zaragoza ACCOUNTING SYSTEM EXPERT: Dr. Kilo Ricci BRIEF HOSPITAL COURSE: Patient is a 39-year-old gentleman who injured his lumbar spine in a work-related injury. Conservative care was attempted and failed. Surgical options were discussed. Patient elected to proceed with surgical fixation. He was admitted on 12/28/2019 and underwent ALIF L5-S1. Surgery was performed with Dr. Alber Zaragoza who performed anterior retroperitoneal exposure of L5-S1 vertebral interspace, right retroperitoneal approach. He tolerated procedure well. Surgery was uneventful. Post-operatively, patient was admitted for post- op care. He was placed on SCDs for DVT prophylaxis and was encouraged use of incentive spirometer. human resources benefits specialist was consulted. He was initially placed on Dilaudid REPRODUCTIVE HEALTHCARE ASSISTANT. He was eventually tapered off Dilaudid and was given [place] for pain control. He was seen by PT. Diet was advanced. Incision was clean, dry and intact. Patient was ambulating well with good pain control and was tolerating diet. Patient was eventually cleared for discharge home. FINAL DIAGNOSES: Unstable spondylolisthesis at L5-S1. PROCEDURES: 1. Wide and radical anterior discectomy, lumbar spine with interbody fusion, L5-S1. 2. Placement of interbody fusion device (4 WEB cage). 3. Anterior instrumentation using Eminent spine plate, L5-S1. 4. Use of allograft (Signafuse). 5. Use of fluoroscopy. (Refer to Operative Report) DISCHARGE DISPOSITION: Patient was discharged home. DISCHARGE MEDICATIONS: Refer to Medication Reconciliation Sheet. DISCHARGE INSTRUCTIONS: Post-op instructions given. Follow-up in a week. I have been assigned to complete a DC summary on this account, I was not involved with the patient's management.--KAYLEEN Salinas Jacqueline Robles NP Jan 02, 2020 10:19
== END 2019-12-31 13:11 | disposition home or self-care (01) | DRG 455 ==
LOC: SDSOVERFLO 09:36 → 3E 15:36
PROC: 4A11X4G Monitoring of Peripheral Nervous Electrical Activity, Intraoperative, External Approach (ICD-10-PCS; principal; 2019-12-28 11:30)
PROC: 0SG3071 Fusion of Lumbosacral Joint with Autologous Tissue Substitute, Posterior Approach, Posterior Column, Open Approach (ICD-10-PCS; principal; 2019-12-28 11:30)
PROC: 0ST40ZZ Resection of Lumbosacral Disc, Open Approach (ICD-10-PCS; principal; 2019-12-28 11:30)
PROC: 0SG30A0 Fusion of Lumbosacral Joint with Interbody Fusion Device, Anterior Approach, Anterior Column, Open Approach (ICD-10-PCS; principal; 2019-12-28 11:30)
DX: M43.17 Spondylolisthesis, lumbosacral region (principal); G89.18 Other acute postprocedural pain
CPT/HCPCS: 36415; 72020; 76000; 85025; 87081; 94003; 94150; C9399; J2250; J2405; J2710; J2795